=== PATIENT | female | born 1955 | race Caucasian/White ===

== ENCOUNTER 2024-12-08 12:32 | Day surgery (SDC) | payer MEDICARE, OTHER, SELFPAY ==
[2024-12-08] VITALS (13 sets, daily range): BP systolic 115–191; BP diastolic 59–90; BMI 22.7
[2024-12-08] MEDS: TORADOL 15 MG IV ×2 (01:47→07:54)
[2024-12-08] MEDS: ZOFRAN 4 MG IV (01:47)
[2024-12-08 01:56] LABS: Hematocrit 41.7 % (37.0-47.0); Hemoglobin 14.2 g/dL (12.0-16.0); Mean Corp Hgb Conc. 34.1 g/dL (33.0-37.0); Mean Corpuscular Volume 87.1 fL (81.0-99.0); Platelet Count 320 10^3/uL (130-400); Red Cell Dist. Width 13.6 % (11.5-14.5)
[2024-12-08 02:10] LABS: ALT (SGPT) 33 U/L (0-35); AST (SGOT) 66 U/L (14-36); Absolute Neutrophils -Man Diff 3.8 10^3/uL (1.4-6.5); Albumin 4.4 g/dl (3.5-5.0); Alkaline Phosphatase 66 U/L (38-126); Blood Urea Nitrogen 22 mg/dl (7-17); Calcium 10.1 mg/dl (8.4-10.2); Carbon Dioxide 25 mmol/L (22-30); Chloride 106 mmol/L (98-107); Glucose 127 mg/dl (70-99); Lipase 340 U/L (23-300); Potassium 4.1 mmol/L (3.5-5.1); Sodium 138 mmol/L (135-145); Total Protein 6.9 g/dl (6.3-8.2); eGFR > 60.00
[2024-12-08 02:11] LABS: Normal RBC Morphology Yes; Platelets Checked Yes; Total Cells Counted 100
--- NOTE | 2024-12-08 07:50 | ED.GENMED ---
History of Present Illness
<Isela Olmos MD, Resident - Last Filed: 12/08/24 10:54>
General
Chief Complaint: Abdominal Pain
Source: patient
Exam Limitations: none
Time Seen by Provider: 12/08/24 06:41
Nursing documentation reviewed up to this point in time: agreed with
History of Present Illness
History of Present Illness:
Ms. Candace Mcgarry is a 69yoF with a PMH notable for renal stones x 4 status post 1 surgical removal, uterine prolapse (s/p hysterectomy 20 years ago), left breast cancer (S/P left mastectomy and chemo), and mitral valve prolapse, who is presenting
with epigastric pain for 2 days. She came to the ED because the pain grew to 10/10 at 1 AM today.
She has had acid reflux and epigastric pain for a few days. Pepcid was not helping so she started taking omeprazole, which helped. She points to the pain being in the epigastric area and radiating to both the left and right sides as well as her
shoulders. She denies pain higher in the chest. She is unsure if she is nauseous or it is just the epigastric pain. Denies vomiting, fever, and diarrhea.
Her last meal was [place] fries at 5 PM yesterday. She usually eats a low-fat and high-protein diet.
Of her 4 kidney stones she passed 3 and had 1 removed via surgery. Past surgical history is notable for unilateral tubal removal plus appendectomy after an ectopic hysterectomy for uterine prolapse and a bladder sling for bladder prolapse.
She denies having a history of bowel obstruction, gallstones pancreatitis or gastrointestinal ulcers.
Past History
<Isela Olmos MD, Resident - Last Filed: 12/08/24 10:54>
Past History
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
ED Past Surgical History: Appendectomy, Gynecological (Salpingectomy for Ectopic preg. , Hysterectomy for uterine prolapse, bladder sling), Orthopedic (spinal fusion with titanium rods and plates 2007) and Other (chemo port placement and removal
(2004))
Patient has exhibited threatening behavior?: No
Social History
Tobacco: Former smoker (Quit < 15 years ago. Smoked 1/2 ppd, but not every day. Started as teenager; quit during pregnancies & )
Alcohol: Occasional
Personal:
Living: with family
<Stefanie Munoz MD - Last Filed: 12/08/24 10:52>
Family History
Family History: Other
Review of Systems
<Isela Olmos MD, Resident - Last Filed: 12/08/24 10:54>
Review of Systems
All Other Systems: ROS reviewed and negative except as documented in HPI and ROS
<Stefanie Munoz MD - Last Filed: 12/08/24 10:52>
Review of Systems
Allergies reviewed?: Yes
Constitutional: Reports no symptoms
EENT: Reports no symptoms
Respiratory: Reports no symptoms
Cardiac: Reports no symptoms
ABD/GI: Reports abdominal pain and nausea
: Reports no symptoms
Musculoskeletal: Reports no symptoms
Skin: Reports no symptoms
Neurological: Reports no symptoms
Endocrine: Reports no symptoms
Hematologic/Lymphatic: Reports no symptoms
Psychiatric: Reports no symptoms
Phy Exam
<Isela Olmos MD, Resident - Last Filed: 12/08/24 10:54>
Physical Exam
Physical Exam:
GI:
Tenderness to palpation most at epigastric and moderately at RUQ and LUQ. No tenderness to palpation in LLQ and RLQ.
No CVA tenderness
Normal bowel sounds
Heart:
RRR, radial pulses 2+ b/l
No pedal edema
Lungs: CTAB
<Stefanie Munoz MD - Last Filed: 12/08/24 10:52>
Physical Exam
Physical Exam:
GI:
Tenderness to palpation most at epigastric and moderately at RUQ and LUQ. No tenderness to palpation in LLQ and RLQ.
No CVA tenderness
Normal bowel sounds
Heart:
RRR, radial pulses 2+ b/l
No pedal edema
Lungs: CTAB
General: Nontoxic, conversational
Neck supple
Lungs clear
Extremities no edema
Skin no rash
Neurological: Nonfocal
Psychiatric: Appropriate, pleasant, cooperative
Course
<Isela Olmos MD, Resident - Last Filed: 12/08/24 10:54>
Orders/Labs/Results
Orders:
Orders
12/08/24 01:33
IV Insert/Care/Rem.- Treatment PRN
12/08/24 01:39
Complete Blood Count/With Diff Urgent
Comprehensive Metabolic Panel Urgent
Lipase Urgent
Manual Differential Urgent
12/08/24 01:41
Ketorolac [Toradol] 15 mg IV NOW STA
Ondansetron Injectable [Zofran] 4 mg IV NOW STA
12/08/24 01:48
Electrocardiogram (*1) Urgent
Reason for Study: Abdominal Pain
EKG- Treatment ONCE
12/08/24 07:44
0.9% Sodium Chloride 1000 ml [Nss] 1,000 ml IV BOLUS
Ketorolac [Toradol] 15 mg IV NOW STA
12/08/24 07:45
US Abdomen Complete/Upper Urgent
Comment:
Reason For Exam: elevated lipase, epig and RUQ pain
12/08/24 07:58
Troponin I Urgent
12/08/24 10:07
SURGICAL CONSULT Urgent
Consulting Provider: Gaudencio Finley
Was physician already notified: Yes
Reason for consult: gallstone pancreatitis
Abnormal Lab Results
12/08/24
01:39
MPV 11.4 H fL
(7.4-10.4)
Segmented Neutrophils 38 L %
(42-75)
BUN 22 H mg/dl
(7-17)
Glucose 127 H mg/dl
(70-99)
AST 66 H U/L
(14-36)
Lipase 340 H U/L
(23-300)
12/08/24 01:39
12/08/24 01:39
Vital Signs
Initial and Last Documented VS:
Initial Vital Signs
Temp Pulse Resp BP Pulse Ox
98.0 F 69 18 170/83 99
12/08/24 01:28 12/08/24 01:28 12/08/24 01:28 12/08/24 01:28 12/08/24 01:28
Last Documented Vital Signs
Temp Pulse Resp BP Pulse Ox
98.0 F 69 18 129/86 98
12/08/24 01:28 12/08/24 01:28 12/08/24 01:28 12/08/24 09:07 12/08/24 09:30
<Stefanie Munoz MD - Last Filed: 12/08/24 10:52>
Orders/Labs/Results
Orders:
Orders
12/08/24 01:33
IV Insert/Care/Rem.- Treatment PRN
12/08/24 01:39
Complete Blood Count/With Diff Urgent
Comprehensive Metabolic Panel Urgent
Lipase Urgent
Manual Differential Urgent
12/08/24 01:41
Ketorolac [Toradol] 15 mg IV NOW STA
Ondansetron Injectable [Zofran] 4 mg IV NOW STA
12/08/24 01:48
Electrocardiogram (*1) Urgent
Reason for Study: Abdominal Pain
EKG- Treatment ONCE
12/08/24 07:44
0.9% Sodium Chloride 1000 ml [Nss] 1,000 ml IV BOLUS
Ketorolac [Toradol] 15 mg IV NOW STA
12/08/24 07:45
US Abdomen Complete/Upper Urgent
Comment:
Reason For Exam: elevated lipase, epig and RUQ pain
12/08/24 07:58
Troponin I Urgent
12/08/24 10:07
SURGICAL CONSULT Urgent
Consulting Provider: Gaudencio Finley
Was physician already notified: Yes
Reason for consult: gallstone pancreatitis
Abnormal Lab Results
12/08/24
01:39
MPV 11.4 H fL
(7.4-10.4)
Segmented Neutrophils 38 L %
(42-75)
BUN 22 H mg/dl
(7-17)
Glucose 127 H mg/dl
(70-99)
AST 66 H U/L
(14-36)
Lipase 340 H U/L
(23-300)
12/08/24 01:39
12/08/24 01:39
Vital Signs
Initial and Last Documented VS:
Initial Vital Signs
Temp Pulse Resp BP Pulse Ox
98.0 F 69 18 170/83 99
12/08/24 01:28 12/08/24 01:28 12/08/24 01:28 12/08/24 01:28 12/08/24 01:28
Last Documented Vital Signs
Temp Pulse Resp BP Pulse Ox
98.0 F 69 18 129/86 98
12/08/24 01:28 12/08/24 01:28 12/08/24 01:28 12/08/24 09:07 12/08/24 09:30
<Isela Olmos MD, Resident - Last Filed: 12/08/24 10:54>
MDM/Problems Addressed
Differential Diagnosis Includes:
Pancreatitis (perhaps gallstone in origin)
Gallstone
ACS
Peptic ulcer
GERD
Renal stone
Gastric hernia
MDM/Problems Addressed:
Ms. Mcgarry is a 69yoF with a PMH notable for kidney stones, gynecological surgeries, and left breast cancer, who is presenting for cholelithiasis and possible pancreatitis.
Patient arrives with acute upper abdominal pain
Lipase slightly elevated at 340. Troponin normal.
RUQ ultrasound demonstrates cholelithiasis. It is possible she has gallstone pancreatitis.
General surgery consulted. NPO for possible intervention
IV fluids
Toradol 15 mg IV for pain control
Zofran for nausea
<Stefanie Munoz MD - Last Filed: 12/08/24 10:52>
MDM/Problems Addressed
MDM/Problems Addressed:
Patient arrives with acute upper abdominal pain
RUQ ultrasound to evaluate for gallstone and pancreatitis
IV fluids
Troponin to evaluate for ACS as a can't miss
Toradol 15 mg IV for pain control
Consider NPO if intervention likely based on imaging
Acute Exacerbation and/or Progression of Chronic Illness:
Patient is acutely hypertensive, however, blood pressure improved on recheck
Acute Exacerbation and/or Progression of Chronic Illness: HTN
<Isela Olmos MD, Resident - Last Filed: 12/08/24 10:54>
*Pulse Oximetry
SaO2: 100
Oxygen Mode of Delivery: Room air
<Stefanie Munoz MD - Last Filed: 12/08/24 10:52>
*Radiology
Radiology exam reviewed: radiology read reviewed
*Pulse Oximetry
Patient hypoxic: no
Comment: 100% on room air
*EKG
Interpreted by ED Provider?: Yes
Interpretation: normal
Comparison EKG: changes noted
Rate: normal
Rhythm: sinus
[place]: normal axis
Interval: normal interval
QRS Pattern: normal QRS
Ischemia: no ischemia
*Critical Care Note
Total Time (30-74mins, 75-104mins- exclusive of procedures): Not Applicable
Data Reviewed
Review of Other/Old Records Reveals: Testing (Cardiac catheterization appears normal from 2010)
Source: patient and spouse
<Stefanie Munoz MD - Last Filed: 12/08/24 10:52>
Patient Management
Discussion with other providers: Other (Dr. Costa came to evaluate patient. Feels that she would benefit from cholecystectomy due to gallstone pancreatitis)
ED Attending Note
<Isela Olmos MD, Resident - Last Filed: 12/08/24 10:54>
-
Portions of this chart may have been created with voice recognition software.� Occasional wrong word or��sound alike� substitutions may have occurred due to the inherent limitations of voice recognition software.
Discharge Plan
Departure
Patient Disposition: Admit
Date of Disposition: 12/08/24
Time of Disposition: 10:50
Admit to: Med/Surg
Admit to doctor: David
Presentation/result/management discussed w/ accepting /DO: david
Patient with high blood pressure during this ER visit?: Yes
Condition: Good
Covid-19: Not Applicable
Discharge Problem:
Acute gallstone pancreatitis
Prescriptions:
No Action
Multiple Vitamins
1 tab PO DAILY
Referrals:
Abdias Dickerson CRNP [Family Provider, Internal Medicine]
Interventions
Interventions:
*Risk Screen - Suicide Last Done: 12/08/24 01:28
*General Assessment Last Done: 12/08/24 01:28
*Neglect/Abuse Screening Last Done: 12/08/24 01:28
*ED- Fall Risk Assessment Last Done: 12/08/24 06:31
*ED COVID-19 Vaccine History Last Done: 12/08/24 01:28
JN-Qqdxqs-Sbpzdgowto Assessment Last Done: 12/08/24 08:01
Discharge Date and Time
Print Language: NIGERIEN
[2024-12-08] MEDS: NSS 1000 IV (07:54)
[2024-12-08 08:28] LABS: Troponin I < 0.012 ng/ml
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
--- NOTE | 2024-12-08 12:39 | W.SUR.PREOP ---
Pre-Operative Surgical Note
-
I have examined this patient prior to the performance of the scheduled procedure.
The patient's condition is unchanged from the time of the current History and
Physical and the patient is able to undergo the scheduled procedure.
--- NOTE | 2024-12-08 13:55 | W.IMMPOSTOP ---
Surgical Immed Post Op Note
-
Primary Surgeon: Malia
Assisting Surgeon: NOLVIA Quiroz
Pre-op Diagnosis: Cholecystitis
Post-op Diagnosis: Cholecystitis
Procedure Performed: Laparoscopic cholecystectomy with IOC
Anesthesia Type: General
Specimen / Cultures:
1. Gallbladder
Estimated Blood Loss: 3 cc
Complications: None
Operative Findings:
1. Omental adhesions along GB, mild wall thickening
2. Critical view
3. IOC negative
4. Duct and artery taken with clips
== END 2024-12-08 15:45 | disposition home or self-care (01) ==
LOC: SDS 12:32
PROVIDERS: Emergency Medicine; CONSULT PHYSICIAN Surgery; EMERGENCY PHYSICIAN Emergency Medicine; FAMILY PHYSICIAN Nurse Practitioner Adult Health
DX: K80.10 Calculus of gallbladder with chronic cholecystitis without obstruction (principal); K66.0 Peritoneal adhesions (postprocedural) (postinfection); K76.0 Fatty (change of) liver, not elsewhere classified
CPT/HCPCS: 47563; 74300; 76000; 76700; 80053; 83690; 84484; 85025; 88304; 93005; 96361; 96374; 96375; 99285; A4300

== ENCOUNTER 2024-12-25 18:20 | Emergency (ER) | payer MEDICARE, OTHER, SELFPAY ==
[2024-12-25 18:24] VITALS: BP 169/87
[2024-12-25 18:42] LABS: Hematocrit 40.8 % (37.0-47.0); Hemoglobin 14.0 g/dL (12.0-16.0); Mean Corp Hgb Conc. 34.3 g/dL (33.0-37.0); Mean Corpuscular Volume 87.7 fL (81.0-99.0); Nucleated Red Blood Cells % 0 %; Platelet Count 333 10^3/uL (130-400); Red Cell Dist. Width 13.5 % (11.5-14.5)
[2024-12-25 18:54] LABS: ALT (SGPT) 79 U/L (0-35); AST (SGOT) 159 U/L (14-36); Albumin 4.5 g/dl (3.5-5.0); Alkaline Phosphatase 85 U/L (38-126); Blood Urea Nitrogen 20 mg/dl (7-17); Calcium 9.8 mg/dl (8.4-10.2); Carbon Dioxide 27 mmol/L (22-30); Chloride 102 mmol/L (98-107); Glucose 130 mg/dl (70-99); Lipase 465 U/L (23-300); Potassium 3.9 mmol/L (3.5-5.1); Sodium 137 mmol/L (135-145); Total Protein 7.1 g/dl (6.3-8.2); eGFR > 60.00
[2024-12-25 21:08] VITALS: BMI 22.6
[2024-12-25 22:05] VITALS: BP 138/79
--- NOTE | 2024-12-25 22:08 | ED.GENMED ---
History of Present Illness
General
Chief Complaint: Abdominal Pain
Source: patient
Exam Limitations: none
Time Seen by Provider: 12/25/24 20:55
Nursing documentation reviewed up to this point in time: agreed with
History of Present Illness
History of Present Illness:
Patient to ED with complaint of sudden onset RUQ abdominal pain. States she took a small bite of tomato pie and pain developed. She is 2 weeks post op cholecystectomy. Post op visit yesterday with Dr. Finley. No issues until tonight. Brought to
ED by spouse for eval. Denies fever/chills. +nausea, no vomiting.
Past History
Past History
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
ED Past Surgical History: Appendectomy, Gynecological (Salpingectomy for Ectopic preg. , Hysterectomy for uterine prolapse, bladder sling), Orthopedic (spinal fusion with titanium rods and plates 2007) and Other (chemo port placement and removal
(2004))
Patient has exhibited threatening behavior?: No
Social History
Tobacco: Former smoker (Quit < 15 years ago. Smoked 1/2 ppd, but not every day. Started as teenager; quit during pregnancies & )
Alcohol: Occasional
Personal:
Living: with family
Family History
Family History: Other
Review of Systems
Review of Systems
Allergies reviewed?: Yes
All Other Systems: ROS reviewed and negative except as documented in HPI and ROS
Constitutional: Reports no symptoms
EENT: Reports no symptoms
Respiratory: Reports no symptoms
Cardiac: Reports no symptoms
ABD/GI: Reports abdominal pain (RUQ abdominal pain)
: Reports no symptoms
Musculoskeletal: Reports no symptoms
Skin: Reports no symptoms
Neurological: Reports no symptoms
Psychiatric: Reports no symptoms
Phy Exam
General Physical Exam
General Presentation: mild distress
General age: appears stated age
General Skin: warm and dry
General Habitus: normal
General Mental: alert
Cardiovascular Exam
Cardiovascular Exam: regular rate/rhythm and no edema
Gastrointestinal Exam
Gastrointestinal Exam: normal bowel sounds, soft, no organomegaly, no pulsatile mass, non distended and no cva tenderness
Palpation: left upper quadrant: No tenderness, left lower quadrant: No tenderness, right upper quadrant: Moderate tenderness and right lower quadrant: No tenderness
Musculoskeletal Exam
Musculoskeletal Exam: full ROM and neuro vasc intact
Skin Exam
Skin Exam: normal color, warm/dry and no rash
Psychiatric Exam
Psychiatric Exam: normal mood/affect
Course
Orders/Labs/Results
Orders:
Orders
12/25/24 18:35
Complete Blood Count/With Diff Urgent
Comprehensive Metabolic Panel Urgent
Lactate Level [Lactic Acid] Q4H
Lipase Urgent
12/25/24 21:00
CT Abd/pelvis W Iv Cont Urgent
Comment:
Reason For Exam: RUQ pain, s/p cholecystectomy
Abnormal Lab Results
12/25/24
18:35
MPV 11.5 H fL
(7.4-10.4)
Absolute Monos (auto) 0.8 H 10^3/uL
(0.1-0.6)
BUN 20 H mg/dl
(7-17)
Glucose 130 H mg/dl
(70-99)
AST 159 H U/L
(14-36)
ALT 79 H U/L
(0-35)
Lipase 465 H U/L
(23-300)
12/25/24 18:35
12/25/24 18:35
Vital Signs
Initial and Last Documented VS:
Initial Vital Signs
Temp Pulse Resp BP Pulse Ox
97.5 F 73 16 169/87 98
12/25/24 18:24 12/25/24 18:24 12/25/24 18:24 12/25/24 18:24 12/25/24 18:24
Last Documented Vital Signs
Temp Pulse Resp BP Pulse Ox
97.5 F 73 16 169/87 98
12/25/24 18:24 12/25/24 18:24 12/25/24 18:24 12/25/24 18:24 12/25/24 18:24
*Radiology
Radiology exam reviewed: radiology read reviewed
*Pulse Oximetry
SaO2: 98
Oxygen Mode of Delivery: Room air
Patient hypoxic: no
*Critical Care Note
Total Time (30-74mins, 75-104mins- exclusive of procedures): Not Applicable
Update Note
Update Note:
Patient to ED wt cmoplaint of RUQ abdominal pain after eating a small piece of tomato pie. Pain diminished on way to ED. Reports 2/10 pain. Labs reveiwed WBC normal. Sli increase in AST/ALT/Lipase from prior. Tbili normal. VSS, she remains
afebrile. CT of abdomen reviewed, no concerning findings. Discussed case with DR. Woo. Ok to discharge home. 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 Will discharge home,will follow up with Dr. Finley. Reba instructions on s/s to
return to ED and she is agreeable to plan.
ED Attending Note
-
Portions of this chart may have been created with voice recognition software.� Occasional wrong word or��sound alike� substitutions may have occurred due to the inherent limitations of voice recognition software.
Discharge Plan
Departure
Prescriptions:
No Action
therapeutic multivitamin Tablet
1 tab PO QPM
famotidine [Pepcid] 20 mg Tablet
20 mg PO DAILYPRN PRN (Reason: gerd)
losartan 25 mg Tablet
25 mg PO DAILY
rosuvastatin 5 mg Tablet
5 mg PO MOWEFR
omeprazole magnesium [Prilosec OTC] 20 mg Tablet,Delayed Release (Dr/Ec)
20 mg PO HSPRN PRN (Reason: gerd)
hydrochlorothiazide 12.5 mg Tablet
12.5 mg PO DAILYPRN PRN (Reason: blood pressure)
cholecalciferol (vitamin D3) 50 mcg (2,000 unit) Tablet
50 mcg PO DAILY
acetaminophen [acetaminophen] 325 mg tablet
650 mg PO Q4HPRN PRN (Reason: mild pain) Qty: 1 0RF
tramadol 50 mg tablet
50 mg PO Q6HPRN PRN (Reason: severe pain/breakthrough pain) Qty: 10 0RF
ibuprofen 200 mg tablet
400 - 600 mg PO Q6HPRN PRN (Reason: moderate pain) Qty: 1 0RF
Referrals:
Abdias Dickerson CRNP [Family Provider, Internal Medicine]
Interventions
Interventions:
*General Assessment Last Done: 12/25/24 21:19
*Neglect/Abuse Screening Last Done: 12/25/24 21:19
*ED- Fall Risk Assessment Last Done: 12/25/24 21:19
*ED COVID-19 Vaccine History Last Done: 12/25/24 21:19
PR-Qmmopd-Hvzwlmvwzo Assessment Last Done: 12/25/24 22:06
ED-Skin Assessment Last Done: 12/25/24 21:19
Discharge Date and Time
Print Language: EQUATORIAL GUINEAN
[2024-12-25] MEDS: TORADOL 15 MG IV (22:40)
== END 2024-12-25 22:48 | disposition home or self-care (01) ==
LOC: EMR 18:20
PROVIDERS: Student in an Organized Health Care Education/Training Program; EMERGENCY PHYSICIAN Student in an Organized Health Care Education/Training Program; FAMILY PHYSICIAN Nurse Practitioner Adult Health
DX: R10.11 Right upper quadrant pain (principal); F17.210 Nicotine dependence, cigarettes, uncomplicated; Z85.3 Personal history of malignant neoplasm of breast; Z90.12 Acquired absence of left breast and nipple; Z90.49 Acquired absence of other specified parts of digestive tract; Z90.710 Acquired absence of both cervix and uterus; Z90.79 Acquired absence of other genital organ(s)
CPT/HCPCS: 96374; 99284; 74177; 80053; 83605; 83690; 85025; Q9967

== ENCOUNTER → 2025-04-10 06:23 | Outpatient (REF) | payer MEDICARE, OTHER, SELFPAY | LOC: RAD 06:23 | PROVIDERS: ATTENDING PHYSICIAN Internal Medicine Cardiovascular Disease; FAMILY PHYSICIAN Nurse Practitioner Adult Health | DX: Z92.3 Personal history of irradiation (principal); I34.1 Nonrheumatic mitral (valve) prolapse | CPT/HCPCS: 93880 ==

== ENCOUNTER → 2025-04-12 08:41 | Outpatient (REF) | payer MEDICARE, OTHER, SELFPAY | LOC: RCS 08:41 | PROVIDERS: ATTENDING PHYSICIAN Internal Medicine Cardiovascular Disease; FAMILY PHYSICIAN Nurse Practitioner Adult Health | DX: Z85.3 Personal history of malignant neoplasm of breast (principal); I34.1 Nonrheumatic mitral (valve) prolapse | CPT/HCPCS: 93306; 93356 ==

== ENCOUNTER → 2025-05-27 12:18 | Outpatient (REF) | payer MEDICARE, OTHER, SELFPAY | LOC: HWRAD 12:18 | PROVIDERS: ATTENDING PHYSICIAN Nurse Practitioner Adult Health | DX: R49.0 Dysphonia (principal); L65.9 Nonscarring hair loss, unspecified; R68.89 Other general symptoms and signs | CPT/HCPCS: 76536 ==